=== PATIENT | male | born 1945 | race Caucasian/White ===

== ENCOUNTER → 2016-08-26 | Outpatient (CLI) | payer MEDICARE, OTHER | END | disposition home or self-care (01) | LOC: GMAH 10:17 | PROVIDERS: ATTEND Family Medicine | DX: R97.20 Elevated prostate specific antigen [PSA] (principal) ==

== ENCOUNTER → 2016-09-22 | Outpatient (CLI) | payer MEDICARE, OTHER ==
--- NOTE | 2016-09-23 12:09 | MRI ---
EXAM DESCRIPTION: Lumbar Spine w/o Contrast CLINICAL HISTORY: RADICULOPATHY COMPARISON: Thoracic and cervical spine MRIs 11/17/2014. TECHNIQUE: Multiplanar, multiple standard sequences, non contrast MRI, lumbar spine. FINDINGS: L5-S1: Minimal disc desiccation and moderate disc space loss. Posterior and left side Modic type II endplate reactive changes. Anterior disc bulging. Posterior midline and left paracentral 5 mm disc protrusion with small inferior annular fissure. This is abutting the descending left S1 nerve. Also the thecal sac. AP canal diameter 11 mm. Hypertrophic changes in the facets and ligaments more left than right. Mild left foraminal stenosis and severe right foraminal narrowing. L4-5: Minimal disc desiccation and minimal disc space loss. Minimal anterior bulging. Posterior broad-based 4 mm disc bulge abutting the thecal sac. Right paracentral 5 mm disc protrusion abutting the descending right L5 nerve above the lateral recess and also abutting the exiting right L4 nerve. Minimal facet and ligament hypertrophy bilaterally. AP canal diameter 7 mm. Moderate bilateral foraminal narrowing. L3-4: Disc desiccation and minimal disc space loss. Minimal anterior bulging. Posterior midline and left paracentral disc herniation 7.5 mm with inferior extrusion. Disc is compressing the thecal sac and impinging the left descending L4 nerve root; abutting the right L4 nerve root above the lateral recess. Minimal hypertrophy of the facets and ligaments bilaterally. AP canal diameter 7 mm midline and 4 mm left paracentral. Mild left foraminal narrowing and moderate right foraminal narrowing. L2-3: Disc desiccation. Tiny posterior bulge to the right of midline and and midline annular fissure. Mild hypertrophy of the posterior ligaments and facets. Mild right foraminal narrowing and left foramen is patent. Mild canal narrowing. L1-2: Disc desiccation and posterior disc space loss. Left paracentral 5 mm protrusion abutting the thecal sac and the descending left L2 nerve. Minimal hypertrophy of the posterior ligaments. Left paracentral AP canal diameter 9 mm. Conus terminates at this level. Mild left foraminal narrowing and moderate right foraminal narrowing. Well-circumscribed bright signal T1 and T2 lesion in the right L1 vertebral body abutting the base of the pedicle. T12-L1: Disc desiccation but no disc space loss. Disc space preserved. No disc bulging. Posterior elements are unremarkable. Canal and foramina are patent. No scoliosis. Paravertebral soft tissues are negative. Normal marrow signal in the remaining vertebral bodies and the posterior elements. Vertebral bodies are not compressed at any level. IMPRESSION: 1. Left posterior paramedian L5-S1 disc protrusion with small annular fissure, abutting the descending left S1 nerve. Correlate for radiculopathy. Moderate left foraminal stenosis, correlate for left L5 radiculopathy. 2. Right paracentral L4-5 disc protrusion abutting the descending right L5 nerve in the exiting right L4 nerve. Correlate for radiculopathy. Mild to moderate canal stenosis. 3. Posterior midline and left paramedian L3-4 disc protrusion and inferior extrusion impressing on the thecal sac and impinging the descending left L4 nerve. Left paracentral severe canal stenosis is multifactorial. Near- stenosis right foramen. 4. Left paracentral L1-2 disc protrusion posterior abutting the descending left L2 nerve. Correlate for radiculopathy. Left paracentral mild canal stenosis. 5. Hemangioma right L1 vertebral body. Electronically signed by: Mike Chang MD 09/23/2016 12:07 PM CDT Workstation: [id number]
== END ==
LOC: MRI 14:14
PROVIDERS: ATTEND Family Medicine
DX: M51.16 Intervertebral disc disorders with radiculopathy, lumbar region (principal)

== ENCOUNTER 2016-10-12 02:01 | Emergency (ER) | payer MEDICARE, OTHER ==
[2016-10-12 02:18] VITALS: O2SAT 98
--- NOTE | 2016-10-12 03:03 | ED.PDOC ---
History of Present Illness - General Chief Complaint: Blood Pressure Problem Stated Complaint: elevated blood pressure Time Seen by Provider: 10/12/16 02:01 Source: patient Exam Limitations: no limitations - History of Present Illness Initial Comments: Felipe Harvey 71 y/o male stated that he woke up from his sleep tonight after hearing his coughing tried to get back to sleep but had a strange feeling took his blood pressure 2x noted 175/110,190/115.Denies chest pains ,headache , blurry vision.Stated also taking care of with Alzheimers disease.Has history of HTN Timing/Duration: 1-3 hours Severity: moderate Improving Factors: nothing Worsening Factors: nothing Associated Symptoms: denies symptoms Allergies/Adverse Reactions: Allergies NO KNOWN ALLERGY Allergy (Unverified 10/12/16 02:11) Home Medications: Ambulatory Orders Losartan Potassium [Cozaar] 50 mg PO 09/17/13 Cipro 10/12/16 Meloxicam 10/12/16 Review of Systems - Review of Systems Constitutional: States: no symptoms reported EENTM: States: no symptoms reported Respiratory: States: no symptoms reported Cardiology: States: no symptoms reported Gastrointestinal/Abdominal: States: other - feels bloated,gassy for several weeks Genitourinary: States: other - elevated psa -followed up by urologist Musculoskeletal: States: no symptoms reported Skin: States: no symptoms reported Neurological: States: no symptoms reported Endocrine: States: no symptoms reported Past Medical History (General) - Patient Medical History Hx Seizures: No Hx Stroke: No Hx Dementia: No Hx Asthma: No Hx of COPD: No Hx Cardiac Disorders: No Hx Congestive Heart Failure: No Hx Pacemaker: No Hx Hypertension: Yes Hx Thyroid Disease: No Hx Diabetes: No Hx Gastroesophageal Reflux: No Hx Renal Disease: No Hx Cancer: No Hx of HIV: No Hx MRSA: No Surgical History: other - vasectomy - Vaccination History Hx Tetanus, Diphtheria Vaccination: Yes Hx Influenza Vaccination: Yes Hx Pneumococcal Vaccination: Yes Immunizations Up to Date: No - Social History Hx Tobacco Use: No Hx Chewing Tobacco Use: No Hx Alcohol Use: Yes - occasionally Hx Substance Use: No Hx Substance Use Treatment: No Hx Depression: No Feels Threatened In Home Enviroment: No Feels Threatened In a Relationship: No Hx Physical Abuse: No Hx Emotional Abuse: No Hx Suspected Abuse: No - Activities of Daily Living Hospice Agency (if applicable):: None Grooming Ability: Independent Eating (Feeding) Ability: Independent Toileting Ability: Independent Family Medical History - Family History Mother Name: mother Living Status: Unknown Hx Family Congestive Heart Failure: Yes Hx Family Hypertension: Yes - brother,mom Hx Family Cancer: Yes - prostate-dad Progress - Progress Progress: 10/12/16 03:11 Vital Signs - 8 hr 10/12/16 02:02 Temperature 97 F L Pulse Rate [ 66 tele] Respiratory 18 Rate Blood Pressure 182/107 [left upper arm ] O2 Sat by Pulse 98 Oximetry - Results/Orders Results/Orders: Laboratory Tests 10/12/16 10/12/16 10/12/16 03:00 03:00 03:00 WBC 3.9 L RBC 4.32 L Hgb 13.3 L Hct 38.7 L MCV 89.7 MCH 30.7 MCHC 34.3 RDW 13.0 Plt Count 179 MPV 8.0 Absolute Neuts (auto) 2.60 Absolute Lymphs (auto) 0.90 L Absolute Monos (auto) 0.30 Absolute Eos (auto) 0.20 Absolute Basos (auto) 0.00 Neutrophils % 66.5 Lymphocytes % 21.8 Monocytes % 7.0 Eosinophils % 3.9 Basophils % 0.8 Sodium 142 Potassium 3.8 Chloride 106 Carbon Dioxide 30 Anion Gap 9.8 L BUN 20 H Creatinine 1.21 BUN/Creatinine Ratio 16.5 Random Glucose 91 Serum Osmolality 285.3 Calcium 8.6 Total Bilirubin 1.3 H AST 18 ALT 17 Alkaline Phosphatase 44 Creatine Kinase 119 CK-MB (CK-2) 2.4 CK-MB (CK-2) % Not Reportable Troponin I < 0.02 Serum Total Protein 6.4 Albumin 3.9 Globulin 2.5 Albumin/Globulin Ratio 1.6 Lipase 49 Vital Signs - 8 hr 10/12/16 10/12/16 02:02 03:09 Temperature 97 F L 98.2 F Pulse Rate [ 66 70 tele] Respiratory 18 16 Rate Blood Pressure 182/107 154/97 [left upper arm ] O2 Sat by Pulse 98 98 Oximetry - EKG/XRAY/CT EKG: Esteban, Sinus, RBBB Comments: heart rate 58 CT Ordered: No Departure - Departure Clinical Impression: Hypertension Qualifiers: Hypertension type: unspecified Qualified Code(s): I10 - Essential (primary) hypertension Time of Disposition: 03:55 Disposition: Discharge to Home or Self Care Condition: Good Departure Forms: ED Discharge - Pt. Copy, Patient Portal Self Enrollment Instructions: DI for High Blood Pressure Diet: low fat, low cholesterol, low salt diet Referrals: Michael Evans MD [Primary Care Provider] - 1-2 Weeks Home Medications: Ambulatory Orders Losartan Potassium [Cozaar] 50 mg PO 09/17/13 Cipro 10/12/16 Meloxicam 10/12/16 Additional Instructions: Follow up with primary md 10/13/2016;Return to emergency room as needed
[2016-10-12 04:14] VITALS: BP 151/98; TEMP 97.2
== END 2016-10-12 04:09 | disposition home or self-care (01) ==
LOC: ER 02:01
DX: I10 Essential (primary) hypertension (principal); I45.10 Unspecified right bundle-branch block

== ENCOUNTER → 2017-02-09 | Outpatient (CLI) | payer MEDICARE, OTHER | END | disposition home or self-care (01) | LOC: GMAH 10:30 | PROVIDERS: ATTEND Family Medicine | DX: E78.2 Mixed hyperlipidemia (principal); I10 Essential (primary) hypertension; R97.20 Elevated prostate specific antigen [PSA] ==

== ENCOUNTER → 2017-05-12 | Outpatient (CLI) | payer MEDICARE, OTHER | LOC: GMAH 10:49 | PROVIDERS: ATTEND Family Medicine | DX: R97.20 Elevated prostate specific antigen [PSA] (principal); E29.1 Testicular hypofunction; I10 Essential (primary) hypertension ==

== ENCOUNTER → 2017-09-16 | Outpatient (CLI) | payer MEDICARE, OTHER ==
--- NOTE | 2017-09-16 14:41 | MRI ---
EXAM DESCRIPTION: Lumbar Spine w/o Contrast CLINICAL HISTORY: 72 years Male, RADICULOPATHY, LUMBAR REGION COMPARISON: 09/22/2016. TECHNIQUE: Multiplanar multiecho imaging of the lumbar spine was performed without intravenous contrast administration. FINDINGS: There is straightening of the normal lordotic curvature of the lumbar spine. The vertebral body heights are well-maintained with no acute compression deformity. Multilevel intervertebral disc space narrowing is noted. The conus medullaris terminates at L1-L2 intervertebral disc space. The visualized spinal cord demonstrates no signal abnormality. L1-L2: Diffuse disc bulge with a superimposed central disc extrusion resulting in moderate canal stenosis. There is mild right and moderate left neural foraminal narrowing secondary to facet arthropathy. L2-L3: Mild disc bulge with no canal stenosis. There is moderate right and mild left neural foraminal narrowing. L3-L4: Mild disc bulge and facet arthropathy with no canal stenosis. There is moderate bilateral neural foraminal narrowing. L4-L5: Diffuse disc bulge and facet arthropathy with no canal stenosis. There is moderate to severe right and moderate left neural foraminal narrowing. L5-S1: Posterior disc osteophyte complex with a superimposed left paracentral disc protrusion and bilateral facet arthropathy with no canal stenosis. There is moderate right and [id number] left neural foraminal narrowing. The visualized prevertebral and paravertebral soft tissues appear unremarkable. IMPRESSION: Multilevel degenerative disc disease and facet arthropathy throughout the lumbar spine with changes worst at L1-L2 level and better at L3-L4 level compared to prior examination. However there is stable to slightly progressed neural foraminal narrowing as detailed above. Electronically signed by: Andres Bradley MD 09/16/2017 2:40 PM CDT
--- NOTE | 2017-09-16 15:51 | CT ---
EXAM DESCRIPTION: Abdomen t/Pelvis w/o Contrast CLINICAL HISTORY: 72 years Male, GENERALIZED ABDOMINAL PAIN COMPARISON: None available. TECHNIQUE: Contiguous 3 mm axial images were obtained from the lung bases to the level of the proximal femora without the administration of intravenous or oral contrast. Sagittal and coronal reconstructions were reviewed. FINDINGS: Limited evaluation of the solid organs due to the lack of intravenous contrast. THORAX: The imaged lower thorax demonstrates no gross abnormality. No pleural or pericardial effusion. The distal esophagus appears grossly unremarkable. Limited evaluation of the solid abdominal organs due to lack of intravenous contrast. LIVER: The liver appears grossly unremarkable with no intrahepatic biliary ductal dilatation. GALLBLADDER: Grossly unremarkable. No evidence of cholelithiasis or acute cholecystitis. PANCREAS: Appears normal with no cystic or solid lesions. SPLEEN: Normal ADRENAL GLANDS: Normal with no nodules or masses. KIDNEYS: Both kidneys are symmetric in size and contour with no hydronephrosis or nephrolithiasis or perinephric fluid collections. The visualized ureters appear grossly unremarkable. STOMACH: The stomach is moderately with no gross abnormality. SMALL BOWEL: The small bowel loops demonstrate variable degrees of distention with no abnormal dilatation or other signs to suggest bowel obstruction. LARGE BOWEL: The colon is adequately distended with no gross abnormality. The appendix is well-visualized and appears normal. Scattered diverticula are noted throughout the colon with no evidence of diverticulitis. No evidence of free intraperitoneal air or fluid. RETROPERITONEUM: The abdominal aorta is nonaneurysmal with mild atherosclerotic calcifications.. The inferior vena cava is normal in size and caliber. No abnormally enlarged retroperitoneal lymph nodes are identified. URINARY BLADDER:The urinary tract is moderately distended and demonstrates mild circumferential wall thickening prostrate and seminal vesicles appear unremarkable. ADDITIONAL FINDINGS: None. BONES: Multilevel degenerative disease of the thoracolumbar spine noted more predominant at L5-S1 level with intervertebral disc space narrowing and severe bilateral facet arthropathy changes. IMPRESSION: 1. No acute intra-abdominal process. 2. Mild compression urinary bladder wall thickening could be related to nondistention, however acute cystitis cannot be completely excluded. Clinical correlation with urinalysis is recommended. This exam was performed according to our departmental dose-optimization program, which includes automated exposure control, adjustment of the mA and/or kV according to patient size and/or use of iterative reconstruction technique. Electronically signed by: Andres Bradley MD 09/16/2017 3:50 PM CDT
== END ==
LOC: CT 13:30
PROVIDERS: ATTEND Family Medicine
DX: R10.84 Generalized abdominal pain (principal); M51.16 Intervertebral disc disorders with radiculopathy, lumbar region

== ENCOUNTER → 2018-02-23 | Outpatient (CLI) | payer MEDICARE, OTHER | LOC: GMAH 12:57 | PROVIDERS: ATTEND Family Medicine | DX: E78.2 Mixed hyperlipidemia (principal); I10 Essential (primary) hypertension; Z12.5 Encounter for screening for malignant neoplasm of prostate | CPT/HCPCS: 84443; 84550; G0103 ==

== ENCOUNTER → 2018-09-14 | Outpatient (CLI) | payer MEDICARE, OTHER | LOC: GMAH 10:28 | PROVIDERS: ATTEND Family Medicine | DX: R97.20 Elevated prostate specific antigen [PSA] (principal) ==

== ENCOUNTER → 2018-09-20 | Outpatient (CLI) | payer MEDICARE, OTHER ==
--- NOTE | 2018-09-21 11:07 | CT ---
EXAM DESCRIPTION: Abdomen/Pelvis w/o Contrast: Computed Tomography. CLINICAL HISTORY: 73 years Male Generalized abdominal pain COMPARISON: CT scan of abdomen and pelvis without contrast 09/16/2017. TECHNIQUE: Spiral-axial scans 2.5 x 2.5 mm intervals through the abdomen and pelvis without oral or IV contrast. Coronal and sagittal 2.0 mm reconstructions. Total Exam DLP: 755.85 mGy-cm. This exam was performed according to our departmental CT dose-optimization program which includes automated exposure control, adjustment of the mA and/or kV according to patient size and/or use of iterative reconstruction technique; to reduce radiation dose to as low as reasonably achievable (ALARA). FINDINGS: Lung bases and pleura: Negative. Cardiac stents and/or calcifications. Liver, stomach, spleen, and adrenal glands: Long axis right lobe 17.6 cm. Small hiatal hernia stable since the prior study. Pancreas, Gallbladder, and Ducts: Gallbladder visualized. Common bile duct dilated. Minimal thickening of the body and tail of the pancreas with calcifications. Stable since the prior study. Possible dilated ducts at the head of the pancreas. Pancreatic duct not dilated in the body and tail. Smooth pancreatic border with no surrounding fatty stranding. Kidneys and Ureters: Unremarkable. Mesentery: No fatty stranding, fascial thickening, free air or free fluid. Aorta: Minimal atherosclerotic calcifications and ectasia. Small Bowel: Scattered gas with no distended segments. Terminal Ileum/Cecum: TI negative. Cecum distended by fecal matter. Minimal appendiceal enlargement but no inflammatory changes. Stable since the prior study. Colon: Moderate distention of the proximal mid and distal colon. Redundancy of the sigmoid colon; focal dilation by air in the superior mid abdomen abutting the pancreas with distal decompression. No complications. Pelvic Organs: Minimal wall thickening in the urinary bladder which may be due to lack of distention. Also seen on the prior study. Prostate gland abutting the bladder and seminal vesicles. No free fluid. Spine and Bony Pelvis: Spondylosis posterior L5-S1 and also mild in the thoracic spine. No change since the prior study. Abdominal Wall/Back Soft Tissues: Minimal diastases at the umbilicus but no bowel involvement. No change since the prior study. IMPRESSION: 1. Enlargement of the pancreas, head more than body or tail, but no dilation of the pancreatic duct. No fatty inflammatory changes. Stable since the prior study. Dilation of the common bile duct, more distally. Gallbladder nondistended. Consider gallbladder ultrasound and radionuclide evaluation of the hepatobiliary system. 2. Moderate constipation in the colon. 3. Mild aortic dilatation, not meeting criteria for aneurysm. No follow-up imaging is recommended. Reference: J Am Tash Radiol 2013;10:789-794. Electronically signed by: Mike Chang MD 09/21/2018 11:05 AM CDT
== END ==
LOC: CT 09:36
PROVIDERS: ATTEND Family Medicine
DX: K86.9 Disease of pancreas, unspecified (principal); K83.8 Other specified diseases of biliary tract; K59.00 Constipation, unspecified; I77.819 Aortic ectasia, unspecified site

== ENCOUNTER → 2018-09-24 | Outpatient (CLI) | payer MEDICARE, OTHER ==
--- NOTE | 2018-09-24 09:08 | US ---
EXAM DESCRIPTION: Gall Bladder CLINICAL HISTORY: RUQ PAIN COMPARISON: Previous CT abdomen September 20, 2018 TECHNIQUE: Right upper quadrant ultrasound FINDINGS: Pancreas: Visualized portions of the pancreas are unremarkable. Previous CT September 20, 2018 showed thickened body of the pancreas and prominent head. These areas are not well seen due to overlying air in the stomach or other bowel gas. One might consider CT abdomen with contrast, MRI of the abdomen for endoscopic sonography to better evaluate the pancreas. Aorta/inferior vena cava: No aortic aneurysm. Normal inferior vena cava. Liver: The liver is homogeneous in texture with normal echogenicity of the hepatic parenchyma. No focal liver lesion or intrahepatic bile duct dilatation. No liver surface irregularity. Normal appearance of the portal vein and hepatic veins. Gallbladder: Gallbladder appears normal with no intraluminal stones or wall thickening. Common bile duct: Normal caliber measuring 8.8 mm. Right kidney: Renal length is 10.7 cm. Normal cortical echogenicity. Cortical thickness is normal. No hydronephrosis is seen. No renal mass or shadowing calculus. IMPRESSION: Limited visualization of the pancreas. Unremarkable upper abdominal sonogram. Electronically signed by: Wayne Sorensen MD 09/24/2018 9:06 AM CDT
== END ==
LOC: US 08:00
PROVIDERS: ATTEND Family Medicine
DX: R10.11 Right upper quadrant pain (principal); R93.2 Abnormal findings on diagnostic imaging of liver and biliary tract

== ENCOUNTER → 2018-09-29 | Outpatient (CLI) | payer MEDICARE, OTHER ==
--- NOTE | 2018-09-29 15:26 | NM ---
EXAM DESCRIPTION: Hepatobiliary w/CCK: Nuclear Medicine. CLINICAL HISTORY: Abnormal findings on diagnostic imaging of liver and biliary trac COMPARISON: Ultrasound gallbladder 09/24/2018. TECHNIQUE: Patient was given 8.6 mCi of technetium 99 M mebrofenin (Choletec) radiopharmaceutical IV. Anterior gamma camera images were obtained of the right upper quadrant at 5 minute intervals for one hour . The patient was then given 1.8 mcg CCK. Gallbladder ejection fraction was evaluated by measuring diminishing radioactivity in the gallbladder, over 30 min interval. FINDINGS: After administration of radiopharmaceutical, immediate visualization of the entire liver and intrahepatic ducts. No focal regions of increased or decreased activity. Gallbladder (2 apparent at 10 minutes after injection. Activity in the intestines 10 minutes after injection. After CCK was administered, symptoms of nausea and abdominal cramping are replicated. Gallbladder activity decreased 80% 10 minutes after administration. Activity increased in the gallbladder from 10 minutes to 30 minutes after administration with overall 30 minutes activity decreased 2%. Reflux of activity into the stomach after administration of CCK. IMPRESSION: 1. No intrahepatic or extrahepatic biliary obstruction. 2. Gallbladder ejection fraction in the first 10 minutes was 80%. Reflux of activity into the stomach with administration of CCK as well as reproduction of symptoms. Electronically signed by: Mike Chang MD 09/29/2018 3:23 PM CDT
== END ==
LOC: NM 08:07
PROVIDERS: ATTEND Family Medicine
DX: R93.2 Abnormal findings on diagnostic imaging of liver and biliary tract (principal); R10.11 Right upper quadrant pain
CPT/HCPCS: 78227; A9537

== ENCOUNTER → 2018-10-29 | Outpatient (CLI) | payer MEDICARE, OTHER ==
--- NOTE | 2018-11-01 08:53 | MRI ---
PROVIDED CLINICAL HISTORY/REASON FOR EXAM: LUMBAR RADICULOPATHY TECHNIQUE: Multiplanar, multisequence MRI examination performed of the lumbar spine without intravenous contrast material. COMPARISON: September 16, 2017 FINDINGS: Five lumbar type vertebra are present. Designated L5/S1 disc space axial T2 image three. Stable L1 vertebral body hemangioma. Alignment: Minimal degenerative stairstep retrolisthesis standing L1-L5. Fracture: None present. Paraspinal Soft Tissues: Unremarkable. Retroperitoneum: Visible structures are unremarkable. Conus Medullaris: Termination at L1 level. Morphology is normal. T12/L1: No significant abnormality. L1/2: Disc desiccation with loss of disc space height. Large posterior disc herniation. The extruded disc contents extend into the canal by 1.05 cm. The cranial migration of extruded disc contents extend 7 mm above the disc space. The caudal extruded disc contents extend 1.2 cm below the disc space. There is severe central canal stenosis. Mild bilateral neural foraminal narrowing. No cord signal abnormality. Redundant nerve roots above the level of the disc herniation. Bilateral facet arthrosis. L2/3: Disc desiccation with mild loss of disc space height posteriorly. Symmetric diffuse disc bulge with a posterior annular fissure. Extruded disc contents extend into the canal by 4 mm. Mild central canal stenosis. Mild bilateral neural foraminal narrowing. Mild right lateral recess narrowing. Bilateral facet arthrosis. L3/4: Disc desiccation with loss of disc space height. Diffuse symmetric disc bulge osteophyte complex. Extruded disc, extending into the canal by 4 mm. Mild central canal stenosis. Bilateral facet hypertrophy and thickening of the ligamentum flavum. Moderate bilateral neural foraminal narrowing. L4/5: Diffuse symmetric disc bulge. Moderate bilateral lateral recess narrowing. Moderate bilateral neural foraminal narrowing. Mild central canal stenosis. Bilateral facet arthrosis and thickening of the ligamentum flavum. L5/S1: Disc desiccation with loss of disc space height and endplate degenerative change. Symmetric diffuse disc bulge osteophyte complex with a superimposed left paracentral disc protrusion. The protrusion extends into the canal by approximately 5 mm. There is an associated annular fissure. No significant central canal stenosis. Moderate to severe bilateral neural foraminal narrowing. Bilateral facet hypertrophy. IMPRESSION: Progressed multilevel lumbar spondylosis, most notably at L1/L2 with a large disc herniation resulting in severe central canal stenosis and mild bilateral neural foraminal narrowing. Electronically signed by: Yony Liao MD 11/01/2018 8:51 AM CDT
== END ==
LOC: MRI 14:00
PROVIDERS: ATTEND Family Medicine
DX: M51.16 Intervertebral disc disorders with radiculopathy, lumbar region (principal); M47.26 Other spondylosis with radiculopathy, lumbar region; M48.062 Spinal stenosis, lumbar region with neurogenic claudication

== ENCOUNTER → 2018-12-15 | Outpatient (CLI) | payer MEDICARE, OTHER | LOC: NC 11:26 | PROVIDERS: ATTEND Family Medicine | DX: R30.0 Dysuria (principal) ==

== ENCOUNTER → 2018-12-22 | Outpatient (CLI) | payer MEDICARE, OTHER ==
--- NOTE | 2018-12-23 15:42 | CT ---
EXAM DESCRIPTION: Lumbar Spine w/Contrast: Computed Tomography. CLINICAL HISTORY: 73 years Male RADICULOPATHY COMPARISON: MRI scan lumbar spine 29 October 2018. TECHNIQUE: Spiral, axial 2.5 x 2.5 mm scans through the lumbarspine without and with IV contrast. Coronal and sagittal 2.0 mm Reconstructions, post-IV contrast. No adverse reactions. Total Exam DLP: 805.65 mGy-cm. This exam was performed according to our departmental dose-optimization program which includes automated exposure control, adjustment of the mA and/or kV according to patient size and/or use of iterative reconstruction technique; to reduce radiation dose to as low as reasonably achievable (ALARA). FINDINGS: L5-S1 disc space is significantly decreased with air density in the disc space. No significant enhancement. Bilateral partial laminectomy L2 and inferior L1. Enhancement is noted in the thecal sac. In the laminectomy site, is a round soft tissue mass measuring 2.5 x 2.4 cm in the transverse plane and 2.6 cm craniocaudal. Hounsfield density +35 to post 40. No significant enhancement internally or in the rim of this collection. No calcifications or loose bodies. Posterior to this tissue is heterogeneously dense tissue representing residual muscle and postsurgical changes. At the junction of the posterior muscle layer and the subcutaneous fascia is a low-density fusiform shaped collection measuring 5.3 x 2.1 x 1.3 cm. Minimal enhancement around this tissue. L5-S1 moderate disc space loss with calcification posterior disc space and borderline canal stenosis with bilateral foraminal stenosis. Minimal bulging posteriorly L4-5 disc with bilateral foraminal and canal narrowing but no definite stenosis. Similar findings at L3-4 and L2-3. No significant change from the prior MRI scan IMPRESSION: 1. Soft tissue mass with Hounsfield density +35 to +40, and the posterior epidural space and prior laminectomy site. No significant renal or internal enhancement in the partial laminectomy site posterior to L2 and the inferior lamina of L1. No calcifications or radiodense loose bodies. 2. Elliptical shaped partial fluid collection at the junction of the posterior muscle layer, the overlying fascia, and the subcutaneous adipose tissues parallel to the long axis of the spine. Minimal surrounding enhancement but no well-defined rim. This could represent early abscess formation.. Electronically signed by: Mike Chang MD 12/23/2018 3:41 PM CDT
== END ==
LOC: CT 13:30
PROVIDERS: ATTEND Neurological Surgery
DX: M54.16 Radiculopathy, lumbar region (principal); R22.2 Localized swelling, mass and lump, trunk; M79.9 Soft tissue disorder, unspecified; I10 Essential (primary) hypertension

== ENCOUNTER 2019-02-20 19:23 | Emergency (ER) | payer MEDICARE, OTHER ==
[2019-02-20] MEDS ORDERED: SODIUM CHLORIDE 0.9% (FLUSH) 10 ML SYG IV PRN (19:42)
[2019-02-20] MEDS ORDERED: SODIUM CHLORIDE 0.9% 1000ML 1,000 ML IVS ONE (19:42)
[2019-02-20] MEDS ORDERED: ACETAMINOPHEN IV 1000MG 1,000 MG in PREMIX BOTTLE 1 BOTTLE IVPB ONE (19:43)
[2019-02-20] MEDS ORDERED: ONDANSETRON INJ 4 MG/2 ML VIAL IV ONE (19:43)
[2019-02-20] MEDS ORDERED: fentaNYL CITRATE INJ 50 MCG/ML AMP IV ONE (19:43)
[2019-02-20 19:45] VITALS: O2SAT 100
--- NOTE | 2019-02-20 19:47 | ED.PDOC ---
History of Present Illness - General Chief Complaint: Back Pain or Injury Stated Complaint: right low back pain Time Seen by Provider: 02/20/19 19:35 Source: patient Exam Limitations: no limitations - History of Present Illness Initial Comments: Patient presents to the emergency department complaining of right-sided back and flank pain that has been progressively worsening over the last month. He has a history of multiple surgeries on his back the last was in December 2018 for a postsurgical paraspinal abscess. His neurosurgeon is Dr. Madera, the patient called his neurosurgeon's office on 02/18/19 for this pain and they called in a prescription for Tylenol with codeine and Valium which she has been taking and initially it seemed to be helping with the pain however today it is no longer making a difference. Did on the right lumbar area as well as the lumbar spine and wraps around to the front of the right abdomen. He denies any associated nausea, vomiting or diarrhea. He denies any bowel or bladder incontinence, groin numbness or lower extremity weakness or numbness, he does have tingling in his R toes which has been present since his first surgery and is unchanged. He denies any fever or chills. He has not had any hematuria or dysuria and denies any history of kidney stones. He does report constipation as his last bowel movement was approximately 4 days ago and he has been taking some MiraLAX without significant results. Pain is currently rated 10/10 in severity and is worsened with movement and palpation. He denies any new trauma or injury. Allergies/Adverse Reactions: Allergies NO KNOWN ALLERGY Allergy (Verified 02/20/19 19:46) Home Medications: Ambulatory Orders Losartan Potassium [Cozaar] 100 mg PO DAILY 09/17/13 Acetaminophen W/ Codeine [Tylenol W/ CODEINE #3] 1 ea PO QID PRN 02/20/19 Atorvastatin Calcium 40 mg PO DAILY 02/20/19 Diazepam 2 mg PO Q8HRS PRN 02/20/19 Gabapentin 300 mg PO BID 02/20/19 Ibuprofen [Motrin] 200 mg PO PRN PRN 02/20/19 Methocarbamol 1,000 mg PO QID 02/20/19 Tadalafil 5 mg PO DAILY 02/20/19 Review of Systems - Review of Systems Constitutional: States: malaise. Denies: fever, weakness EENTM: Denies: nose congestion, throat pain Respiratory: Denies: cough, short of breath Cardiology: Denies: chest pain, palpitations Gastrointestinal/Abdominal: States: abdominal pain - R sided, constipation. Denies: diarrhea, nausea, vomiting Genitourinary: Denies: dysuria, hematuria Musculoskeletal: States: back pain - lumbar and R flank, muscle pain - R flank Skin: Denies: lesions, rash Neurological: Denies: headache, numbness, weakness Past Medical History (General) - Patient Medical History Hx Seizures: No Hx Stroke: No Hx Dementia: No Hx Asthma: No Hx of COPD: No Hx Cardiac Disorders: No Hx Congestive Heart Failure: No Hx Pacemaker: No Hx Hypertension: Yes Hx Thyroid Disease: No Hx Diabetes: No Hx Gastroesophageal Reflux: No Hx Renal Disease: No Hx Cancer: No Hx of HIV: No Hx MRSA: No - Vaccination History Hx Tetanus, Diphtheria Vaccination: Yes Hx Influenza Vaccination: Yes Hx Pneumococcal Vaccination: Yes - Social History Hx Tobacco Use: No Hx Chewing Tobacco Use: No Hx Alcohol Use: Yes - occasionally Hx Substance Use: No Hx Substance Use Treatment: No Hx Depression: No Hx Physical Abuse: No Hx Emotional Abuse: No Hx Suspected Abuse: No Family Medical History - Family History Mother Name: mother Living Status: Unknown Hx Family Congestive Heart Failure: Yes Hx Family Hypertension: Yes - brother,mom Hx Family Cancer: Yes - prostate-dad Physical Exam - Physical Exam General Appearance: Alert, Obvious distress - due to pain, Well Developed, Well Nourished Eyes, Ears, Nose, Throat Exam: PERRL/EOMI, pharynx normal Neck Exam: full range of motion, normal inspection Cardiovascular/Respiratory: regular rate, rhythm, no M/R/G, normal peripheral pulses Peripheral Pulses: radial,right: 2+, radial,left: 2+, dorsalis pedis,right: 2+, dorsalis pedis,left: 2+ Gastrointestinal/Abdominal: soft, abnormal bowel sounds, distended, other - Slightly distended but soft with no focal tenderness. Hypoactive bowel sounds. Back Exam: no CVA tenderness, decreased range of motion, vertebral tenderness, other - Fullness to the lumbar spinal soft tissues with tenderness over the lumbar spine as well as the right lumbar paraspinal muscles. Spasm in the right lumbar paraspinal muscles. Extremity Exam: normal range of motion, no pedal edema Neurologic: social worker assistant II-XII nml as tested, no motor/sensory deficits, alert, normal mood/affect, oriented x 3 Skin Exam: normal color, warm/dry Comments: Vital Signs - 24 hr 02/20/19 19:29 Temperature 98.5 F Pulse Rate [ 86 monitor] Respiratory 20 Rate Blood Pressure 165/90 [Left Arm] O2 Sat by Pulse 100 Oximetry Progress - Progress Progress: 02/20/19 21:[address] findings with the radiologist concerning for anterior epidural fluid collection and discitis with osteomyelitis. 21:30 Spoke with her Josh ,the on-call neurosurgeon for Dr. Madera patient's neurosurgeon, and he recommends transfer the patient to [facility] ER for admission and MRI and he will see the patient in consult. He states that it is his recollection of the patient's previous cultures grew pseudomonas. 31:33 Patient recheck: His pain is significantly improved. All lab and imaging results were discussed with the patient along with the plan for transfer for further evaluation and neurosurgical consultation. IV vancomycin, cefepime and Flagyl have been ordered. He agrees with the treatment plan. 02/20/19 22:[address] Laytno, the emergency physician at [facility], he will accept the patient transfer. - Results/Orders Results/Orders: 02/20/19 19:42 IV Care:Saline Lock per Protoc QSHIFT Telemetry .ONCE Sodium Chloride 0.9% (Flush) [Saline Flush Syringe] 10 ml IV PRN PRN EKG Assessment ONCE EKG Stat Pulse Ox Stat Pulse Oximetry Assessment DAILY URINALYSIS Stat 02/20/19 19:44 Hold Metformin x 48Hrs [id number] 02/20/19 20:12 BLOOD CULTURE Stat Laboratory Results - last 24 hr 02/20/19 02/20/19 02/20/19 19:42 19:42 19:42 WBC 6.7 RBC 4.46 L Hgb 13.2 L Hct 39.0 L MCV 87.4 MCH 29.6 MCHC 33.8 RDW 12.7 Plt Count 241 MPV 7.8 Absolute Neuts (auto) 5.30 Absolute Lymphs (auto) 0.70 L Absolute Monos (auto) 0.50 Absolute Eos (auto) 0.10 Absolute Basos (auto) 0.00 Neutrophils % 78.7 H Lymphocytes % 11.2 L Monocytes % 7.6 Eosinophils % 1.9 Basophils % 0.6 ESR PT 9.4 INR 0.94 Sodium 139 Potassium 3.7 Chloride 101 Carbon Dioxide 29 Anion Gap 12.7 BUN 16 Creatinine 1.03 BUN/Creatinine Ratio 15.5 Random Glucose 98 Serum Osmolality 278.7 Lactic Acid Calcium 9.3 Total Bilirubin 0.9 AST 23 ALT 30 Alkaline Phosphatase 78 Creatine Kinase 128 CK-MB (CK-2) 5.4 H* CK-MB (CK-2) % 4.22 H Troponin I < 0.02 C-Reactive Protein Serum Total Protein 7.6 Albumin 4.2 Globulin 3.4 Albumin/Globulin Ratio 1.2 02/20/19 02/20/19 02/20/19 19:43 19:43 19:45 WBC RBC Hgb Hct MCV MCH MCHC RDW Plt Count MPV Absolute Neuts (auto) Absolute Lymphs (auto) Absolute Monos (auto) Absolute Eos (auto) Absolute Basos (auto) Neutrophils % Lymphocytes % Monocytes % Eosinophils % Basophils % ESR 35 H PT INR Sodium Potassium Chloride Carbon Dioxide Anion Gap BUN Creatinine BUN/Creatinine Ratio Random Glucose Serum Osmolality Lactic Acid 0.8 Calcium Total Bilirubin AST ALT Alkaline Phosphatase Creatine Kinase CK-MB (CK-2) CK-MB (CK-2) % Troponin I C-Reactive Protein 0.8 Serum Total Protein Albumin Globulin Albumin/Globulin Ratio 02/20/191999 EKG: Interpreted by myself as sinus rhythm rate 74 with a right bundle branch block. Normal axis. QRS of 152 ms. Normal OR and QTc intervals. No ST elevation and nonspecific ST-T changes. CXR: IMPRESSION: Left lung base consolidation. Electronically signed by: Mike Wall 02/20/2019 8:22 PM [address] [employer] CT A/P with lumbar reconstruction: IMPRESSION: Moderate diffuse colonic constipation without bowel inflammation or obstruction. Findings concerning for discitis and osteomyelitis at L2-L3 including an anterior epidural mass. Neurosurgical evaluation and contrast enhanced MRI recommended. Electronically signed by: Corinne Keane MD 02/20/2019 9:22 PM CONTACT [employer] OPERATOR Departure - Departure Clinical Impression: Discitis of lumbar region, Osteomyelitis of lumbar vertebra, Epidural abscess LLL pneumonia Qualifiers: Pneumonia type: due to unspecified organism Qualified Code(s): J18.9 - Pneumonia, unspecified organism Time of Disposition: 22:34 Home Medications: Ambulatory Orders Losartan Potassium [Cozaar] 100 mg PO DAILY 09/17/13 Acetaminophen W/ Codeine [Tylenol W/ CODEINE #3] 1 ea PO QID PRN 02/20/19 Atorvastatin Calcium 40 mg PO DAILY 02/20/19 Diazepam 2 mg PO Q8HRS PRN 02/20/19 Gabapentin 300 mg PO BID 02/20/19 Ibuprofen [Motrin] 200 mg PO PRN PRN 02/20/19 Methocarbamol 1,000 mg PO QID 02/20/19 Tadalafil 5 mg PO DAILY 02/20/19 Transfer to Outside Facility - Transfer Information Decision to Transfer Date: 02/20/19 Decision to Transfer Time: 21:30 Reason for Transfer: specialized care not available Accepting Provider:: Dr. Layton Accepting Facility: [facility]
--- NOTE | 2019-02-20 20:23 | RAD ---
EXAM DESCRIPTION: Chest,1 View CLINICAL HISTORY: back pain COMPARISON: None. FINDINGS: Cardiac silhouette is within normal limits. There is consolidation at the medial left lung base. No significant pleural effusion. IMPRESSION: Left lung base consolidation. Electronically signed by: Mike Wall 02/20/2019 8:22 PM [facility]
--- NOTE | 2019-02-20 21:23 | CT ---
PROCEDURE: CT Abdomen/Pelvis w/Contrast CLINICAL HISTORY: 73 years Male Right abd pain TECHNIQUE: Contiguous axial images obtained through the abdomen and pelvis following intravenous contrast administration. Coronal and sagittal reformatted images provided. This CT exam was performed according to our departmental dose-optimization program, which includes one or more of the following dose reduction techniques: automated exposure control, adjustment of the mA and/or kV according to patient size, and/or use of iterative reconstruction technique. COMPARISON: Comparison is made with the prior exam dated 09/20/2018 FINDINGS: Minimal bibasilar atelectasis. The liver, biliary tree, gallbladder, pancreas, spleen, adrenal glands, kidneys, and urinary bladder are normal. There is moderate diffuse colonic constipation without bowel inflammation, obstruction, pneumatosis, free intraperitoneal air, abscess, or ascites. Normal appendix. There has been prior posterior decompression at L2-L3. There is chronic-appearing destruction of the L2-L3 disc with an anterior epidural mass. These findings are new since the prior exam. The remainder of the lumbar spine demonstrates moderate chronic multilevel degenerative change. IMPRESSION: Moderate diffuse colonic constipation without bowel inflammation or obstruction. Findings concerning for discitis and osteomyelitis at L2-L3 including an anterior epidural mass. Neurosurgical evaluation and contrast enhanced MRI recommended. Electronically signed by: Corinne Keane MD 02/20/2019 9:22 PM DIESEL LUBE TECH
--- NOTE | 2019-02-20 21:31 | CT ---
PROCEDURE: CT Lumbar Spine w/Contrast CLINICAL HISTORY: 73 years Male R back pain TECHNIQUE: Contiguous axial CT images obtained through the lumbar spine without IV contrast. Coronal and sagittal reformatted images also provided. This CT exam was performed according to our departmental dose-optimization program, which includes one or more of the following dose reduction techniques: automated exposure control, adjustment of the mA and/or kV according to patient size, and/or use of iterative reconstruction technique. COMPARISON: No prior exams provided for comparison. FINDINGS: Patient again seen to be status post posterior decompression at L1-L2. New since the prior exam is destruction of the L1-L2 disc with associated endplate erosion and sclerosis, consistent with discitis. Also new since the prior exam is Mild soft tissue fullness at this level, including an anterior epidural mass measuring up to 9 mm in thickness. Posterior to the thecal sac, there is soft tissue attenuation without definite fluid. The remainder of the lumbar spine is stable with mild chronic multilevel degenerative change. At L4-L5, degenerative changes result in severe central canal stenosis with moderate bilateral neural foraminal stenosis. At L5-S1, stable left paracentral disc extrusion with moderate central canal stenosis and severe bilateral neural foraminal stenosis. IMPRESSION: Postsurgical changes again noted at L1-L2. Since the prior exam, there has been development of discitis and osteomyelitis at this level. There has also been development of paraspinal soft tissue fullness including an anterior epidural mass measuring up to 9 mm in thickness. Neurosurgical evaluation recommended. Consider further evaluation with contrast-enhanced MRI. THIS REPORT CONTAINS FINDINGS THAT MAY BE CRITICAL TO PATIENT CARE: The findings were verbally discussed via telephone conference with Dr. Christie Sosa by Dr. Corinne Keane on 02/20/2019 9:24 PM CARTOON DESIGNER .The results were acknowledged and understood. Electronically signed by: Corinne Keane MD 02/20/2019 9:29 PM C[employer] DESIGNER
[2019-02-20] MEDS ORDERED: metroNIDAZOLE IV PREMIX 500MG 500 MG in PREMIX BAG 1 BAG IVPB ONE (21:44)
[2019-02-20] MEDS ORDERED: CEFEPIME 2 GM in SODIUM CHL 0.9% 50ML MIN-BAG+ 50 ML IVPB ONE (21:44)
[2019-02-20] MEDS ORDERED: ACETAMINOPHEN IV 1000MG 100 ML ONE (21:55)
[2019-02-20] MEDS ORDERED: VANCOMYCIN HCL INJ 2,000 MG in SODIUM CHLORIDE 0.9% 500ML 500 ML IVPB SCH (22:00)
[2019-02-20] MEDS ORDERED: SODIUM CHL 0.9% 50ML MIN-BAG+ 50 ML IVPB ONE (22:37)
[2019-02-20] MEDS ORDERED: CEFEPIME 2 GM VIAL ONE (22:37)
[2019-02-20] MEDS ORDERED: metroNIDAZOLE IV PREMIX 500MG 100 ML IVPB ONE (22:37)
--- NOTE | 2019-02-20 22:50 | CT ---
PROCEDURE: CT Lumbar Spine w/Contrast CLINICAL HISTORY: 73 years Male R back pain TECHNIQUE: Contiguous axial CT images obtained through the lumbar spine without IV contrast. Coronal and sagittal reformatted images also provided. This CT exam was performed according to our departmental dose-optimization program, which includes one or more of the following dose reduction techniques: automated exposure control, adjustment of the mA and/or kV according to patient size, and/or use of iterative reconstruction technique. COMPARISON: No prior exams provided for comparison. FINDINGS: Patient again seen to be status post posterior decompression at L1-L2. New since the prior exam is destruction of the L1-L2 disc with associated endplate erosion and sclerosis, consistent with discitis. Also new since the prior exam is Mild soft tissue fullness at this level, including an anterior epidural mass measuring up to 9 mm in thickness. Posterior to the thecal sac, there is soft tissue attenuation without definite fluid. The remainder of the lumbar spine is stable with mild chronic multilevel degenerative change. At L4-L5, degenerative changes result in severe central canal stenosis with moderate bilateral neural foraminal stenosis. At L5-S1, stable left paracentral disc extrusion with moderate central canal stenosis and severe bilateral neural foraminal stenosis. IMPRESSION: Postsurgical changes again noted at L1-L2. Since the prior exam, there has been development of discitis and osteomyelitis at this level. There has also been development of paraspinal soft tissue fullness including an anterior epidural mass measuring up to 9 mm in thickness. Neurosurgical evaluation recommended. Consider further evaluation with contrast-enhanced MRI. THIS REPORT CONTAINS FINDINGS THAT MAY BE CRITICAL TO PATIENT CARE: The findings were verbally discussed via telephone conference with Dr. Christie Sosa by Dr. Corinne Keane on 02/20/2019 9:24 PM MANAGER DOCUMENTATION .The results were acknowledged and understood. Electronically signed by: Corinne Keane MD 02/20/2019 9:29 PM MANAGER DOCUMENTATION
[2019-02-20 22:56] VITALS: BP 174/99; TEMP 98.7
[2019-02-20] MEDS ORDERED: SODIUM CHLORIDE 0.9% 500ML 500 ML ONE (22:57)
[2019-02-20] MEDS ORDERED: VANCOMYCIN HCL INJ 1,000 MG VIAL IVPB ONE (22:57)
== END 2019-02-20 23:17 | disposition home or self-care (01) ==
LOC: ER 19:23
DX: G06.1 Intraspinal abscess and granuloma (principal); M46.26 Osteomyelitis of vertebra, lumbar region; J18.9 Pneumonia, unspecified organism; I45.10 Unspecified right bundle-branch block; K59.00 Constipation, unspecified; Z98.890 Other specified postprocedural states; I10 Essential (primary) hypertension
CPT/HCPCS: 36415; 71045; 72132; 74177; 80053; 81001; 82550; 82553; 83605; 84484; 85025; 85610; 85651; 86140; 87040; 93005; J0692; J2405; J3010; J3370; J3490; J7030; J7040; J7050

== ENCOUNTER → 2019-03-16 | Outpatient (CLI) | payer MEDICARE, OTHER ==
--- NOTE | 2019-03-16 17:34 | MRI ---
EXAM DESCRIPTION: Lumbar Spine w/wo Contrast: Magnetic Resonance Imaging. CLINICAL HISTORY: LUMBAR RADICULOPATHY. Lumbar surgery for herniated disc at L1-L2 December 2018. Osteomyelitis has developed. Currently taking IV infusion antibiotics. COMPARISON: Presurgical lumbar MRI without contrast October 2018. CT scan of the lumbar spine 20 February 2019. TECHNIQUE: Multiplanar, MRI, multiple standard sequences, without and with 1 mL per 5 kg body weight, Gadolinium IV contrast, lumbar spine. No adverse reactions. FINDINGS: Significant disc space loss at L1-L2 with endplate erosions and enhancement. Enhancement also in the disc space mostly to the right of midline and in the posterior disc space. This enhancing substance in the posterior disc space, more left than right, is also tracking posterior to the L2 endplate, in the epidural space, midline and the left of midline. It is Impressing on the ventral midline and left ventral cord and is coursing inferiorly in the epidural space, and encasing the descending left L2 nerve. This enhancing tissue is also extending on the left lateral aspect of the cord into the posterior epidural space. Tissue is Inferior to the left L1-L2 foramen and posteriorly abutting the inferior left L1 facet, with enhancement. This enhancing tissue also tracks posterior to the cord in the midline, stopping just superior to the L3 lamina. Diffuse marrow edema in the T1 and T2 vertebral bodies with decreased signal almost all sequences in the endplates except as noted with fluid and enhancement. The spine is convex on the left especially at this disc space level resulting in stenosis of the right L1-L2 foramen with compromise of the right L1 nerve. Marrow edema and enhancement in the right pedicle and lamina of L2. Stable hemangioma in the right L1 vertebral body abutting the right pedicle base, with enhancement. Edema and enhancement extends posteriorly to the surgical decompression site at L2 inferiorly to the soft tissues abutting the L3 lamina and pedicle bilaterally. L2-L3 disc with minimal posterior bulge and hyperintense T2 annular fissure in the midline. Hypertrophic posterior ligaments and facet joints with AP canal diameter 10 mm. Bilateral moderate foraminal narrowing. Trace amount of epidural enhancement at this level. Findings at the more inferior discs, disc spaces, posterior elements, thecal sac and nerve roots are stable since the prior MRI scan. No abnormal enhancement or signal in the T12-L1 disc. IMPRESSION: 1. Epidural abscess in the posterior L1-L2 disc space, extending into the anterior epidural space, tracking inferiorly around the descending left L2 nerve and tracking in the left lateral epidural space, and inferior to the level of the superior bilateral L3 lamina. Right L1-L2 foraminal stenosis and compromise right L1 nerve; significant narrowing left L1-L2 foramen. 2. Minimal enhancement in the ventral epidural space at the L2-L3 disc space level may be due to trace amount of abscess. Also inflammation in the soft tissues abutting the posterior bilateral L3 lamina. Borderline mild central canal stenosis and bilateral moderate foraminal narrowing 3. Osteomyelitis involving the L1 and L2 endplates predominately in the midline slightly to the right of midline with more involvement of the L2 endplate in the L1 endplate. Electronically signed by: Mike Chang MD 03/16/2019 5:32 PM MANAGER MSW
== END ==
LOC: MRI 11:00
PROVIDERS: ATTEND Neurological Surgery
DX: M54.16 Radiculopathy, lumbar region (principal); G06.1 Intraspinal abscess and granuloma; M48.062 Spinal stenosis, lumbar region with neurogenic claudication; M46.26 Osteomyelitis of vertebra, lumbar region

== ENCOUNTER 2019-07-11 12:45 | Emergency (ER) | payer MEDICARE, OTHER ==
--- NOTE | 2019-07-11 13:33 | RAD ---
EXAM DESCRIPTION: Chest,1 View: CR/DR/XR. CLINICAL HISTORY: 73 years Male achiness x weeks COMPARISON: One view May 04. TECHNIQUE: ONE VIEW PORTABLE. AP 1326 hours, upright position. FINDINGS: Lungs are well-inflated with no acute infiltrate. Senescent markings in the lungs. Heart size upper normal limits with normal pulmonary vascularity. No pleural effusion or pneumothorax. IMPRESSION: No radiographic evidence of acute cardiopulmonary disease. Stable since April 2019. Electronically signed by: Mike Chang MD 07/11/2019 1:31 PM CDT
[2019-07-11 13:45] VITALS: O2SAT 98
--- NOTE | 2019-07-11 14:48 | ED.PDOC ---
History of Present Illness - General Chief Complaint: General Time Seen by Provider: 07/11/19 12:55 Source: patient Exam Limitations: no limitations - History of Present Illness Initial Comments: The patient is a 73-year-old male presenting secondary to myalgias and generalized body aches worsening over the last 2 weeks. No nausea or vomiting. No fever. The patient has had a history of discitis having undergone extensive antibiotic therapy for at least 2 rounds. He has been off of antibiotics for the last 3 weeks or so. He is also stopped his statin a week to 10 days ago. Again no fever. No increased pain at the previous surgery in the infection site. No nausea vomiting or diarrhea. No medication changes otherwise. He has been keeping well-hydrated. No syncope or near syncope. No chest pain. He does take a statin medication. Timing/Duration: unsure Severity: moderate Improving Factors: nothing Worsening Factors: nothing Associated Symptoms: denies symptoms Allergies/Adverse Reactions: Allergies NO KNOWN ALLERGY Allergy (Verified 02/20/19 19:46) Home Medications: Ambulatory Orders Losartan Potassium [Cozaar] 100 mg PO DAILY 09/17/13 Acetaminophen W/ Codeine [Tylenol W/ CODEINE #3] 1 ea PO QID PRN 02/20/19 Atorvastatin Calcium 40 mg PO BEDTIME 02/20/19 Diazepam 2 mg PO Q8HR PRN 02/20/19 Gabapentin 300 mg PO BID 02/20/19 Tadalafil 5 mg PO DAILY 02/20/19 Ascorbic Acid [Vitamin C] 500 mg PO BID 04/09/19 Bifidobacterium Infantis [Align] 4 mg PO DAILY 04/09/19 Cyclobenzaprine HCl [Flexeril] 7.5 mg PO TID PRN 04/09/19 Multiple Vitamins W/ Minerals [Multi For Him 50+] 1 tab PO DAILY 04/09/19 Review of Systems - Review of Systems Constitutional: States: malaise EENTM: States: no symptoms reported Respiratory: States: no symptoms reported Cardiology: States: no symptoms reported Gastrointestinal/Abdominal: States: no symptoms reported Genitourinary: States: no symptoms reported Musculoskeletal: States: see HPI Skin: States: no symptoms reported Neurological: States: anxiety Endocrine: States: no symptoms reported All other Systems: No Change from Baseline Past Medical History (General) - Patient Medical History Hx Seizures: No Hx Stroke: No Hx Dementia: No Hx Asthma: No Hx of COPD: No Hx Cardiac Disorders: No Hx Congestive Heart Failure: No Hx Pacemaker: No Hx Hypertension: Yes Hx Thyroid Disease: No Hx Diabetes: No Hx Gastroesophageal Reflux: No Hx Renal Disease: No Hx Cancer: No Hx of HIV: No Hx Hepatitis C: No Hx MRSA: No - Vaccination History Hx Tetanus, Diphtheria Vaccination: Yes Hx Influenza Vaccination: Yes Hx Pneumococcal Vaccination: Yes - Social History Hx Tobacco Use: No Hx Chewing Tobacco Use: No Hx Alcohol Use: Yes - occasionally Hx Substance Use: No Hx Substance Use Treatment: No Hx Depression: No Hx Physical Abuse: No Hx Emotional Abuse: No Hx Suspected Abuse: No Family Medical History - Family History Mother Name: mother Living Status: Unknown Hx Family Congestive Heart Failure: Yes Hx Family Hypertension: Yes - brother,mom Hx Family Cancer: Yes - prostate-dad Physical Exam - Physical Exam General Appearance: Alert, Anxious, No apparent distress Eye Exam: bilateral normal Ears, Nose, Throat: hearing grossly normal, normal pharynx Neck: full range of motion, supple Respiratory: lungs clear, normal breath sounds, no respiratory distress, no accessory muscle use Cardiovascular/Chest: normal peripheral pulses, regular rate, rhythm, no edema Peripheral Pulses: radial,right: 2+, radial,left: 2+ Gastrointestinal/Abdominal: non tender, soft Rectal Exam: deferred Back Exam: no CVA tenderness, no vertebral tenderness Extremity: normal range of motion, non-tender, normal inspection, no pedal edema, normal capillary refill Neurologic: sanitation tank washer II-XII nml as tested, alert, normal mood/affect, oriented x 3 Skin Exam: normal color Comments: Vital Signs - 8 hr 07/11/19 12:57 Temperature 97.4 F L Pulse Rate [ 62 left brachial] Respiratory 20 Rate Blood Pressure 144/88 [left brachial] O2 Sat by Pulse 98 Oximetry Progress - Progress Progress: 07/11/19 14:48 The patient is a 73-year-old male presented emergency room secondary to increasing body aches over the last several weeks. The patient has had a history of significant discitis in the not too distant past. On the work-up today there is not appear to be any significant evidence of that return. White blood cell count is within normal limits for the patient. CRP was undetectable and ESR was only 3. Renal function and liver function appear to be within normal limits. No evidence of significant anemia. Chest x-ray was clear and rapid flu was negative. At this point in time I would tell him to remain off of his statin for another couple of weeks. If the myalgias are not improving then he should have a trial of a week or 2 off of his tadalafil. Myalgias can be associated with it. I would recommend that he follow back up with his primary care doctor in a week or 2. ER warnings are given. A blood culture was done today. There is the possibility of a psychosomatic component given the belinda lele's recent stressors. Exercise should be encouraged. obie angela [phone] 07/11/19 14:50 - Results/Orders Results/Orders: 07/11/19 13:15 EKG STAT sinus bradycardia 59 bpm. Normal axis. Right bundle branch block. Normal QT interval. No definitive ST segment or T wave changes indicative of acute ischemia. Left atrial dilation. Chest x-ray fails to show any acute pathology. 07/11/19 13:47 BLOOD CULTURE Stat Laboratory Results - last 24 hr 07/11/19 07/11/19 07/11/19 13:17 13:17 13:17 WBC 4.6 L RBC 4.61 L Hgb 13.5 L Hct 39.3 L MCV 85.4 MCH 29.3 MCHC 34.3 RDW 14.0 Plt Count 164 MPV 8.2 Absolute Neuts (auto) 3.40 Absolute Lymphs (auto) 0.70 L Absolute Monos (auto) 0.40 Absolute Eos (auto) 0.10 Absolute Basos (auto) 0.00 Neutrophils % 74.6 Lymphocytes % 15.3 L Monocytes % 7.9 Eosinophils % 1.8 Basophils % 0.4 ESR 3 Sodium 138 Potassium 3.7 Chloride 105 Carbon Dioxide 25 Anion Gap 11.7 L BUN 16 Creatinine 0.92 BUN/Creatinine Ratio 17.4 Random Glucose 101 Serum Osmolality 277.0 Lactic Acid Calcium 9.0 Magnesium 2.1 Total Bilirubin 1.8 H AST 21 ALT 21 Alkaline Phosphatase 51 Creatine Kinase 122 CK-MB (CK-2) 4.4 CK-MB (CK-2) % Not Reportable Troponin I < 0.02 C-Reactive Protein < 0.5 Serum Total Protein 6.9 Albumin 4.3 Globulin 2.6 Albumin/Globulin Ratio 1.7 TSH 2.62 Urine Color Urine Appearance Urine pH Ur Specific [place] Urine Protein Urine Glucose (UA) Urine Ketones Urine Blood Urine Nitrite Urine Bilirubin Urine Urobilinogen Ur Leukocyte Esterase Urine RBC Urine WBC Ur Epithelial Cells Urine Bacteria Urine Mucus 07/11/19 07/11/19 13:17 Unknown WBC RBC Hgb Hct MCV MCH MCHC RDW Plt Count MPV Absolute Neuts (auto) Absolute Lymphs (auto) Absolute Monos (auto) Absolute Eos (auto) Absolute Basos (auto) Neutrophils % Lymphocytes % Monocytes % Eosinophils % Basophils % ESR Sodium Potassium Chloride Carbon Dioxide Anion Gap BUN Creatinine BUN/Creatinine Ratio Random Glucose Serum Osmolality Lactic Acid 0.9 Calcium Magnesium Total Bilirubin AST ALT Alkaline Phosphatase Creatine Kinase CK-MB (CK-2) CK-MB (CK-2) % Troponin I C-Reactive Protein Serum Total Protein Albumin Globulin Albumin/Globulin Ratio TSH Urine Color Yellow Urine Appearance Clear Urine pH 6.0 Ur Specific [place] 1.010 Urine Protein Negative Urine Glucose (UA) Negative Urine Ketones Negative Urine Blood Negative Urine Nitrite Negative Urine Bilirubin Negative Urine Urobilinogen 0.2 Ur Leukocyte Esterase Negative Urine RBC 0 Urine WBC 1-3 Ur Epithelial Cells 1-3 Urine Bacteria Rare Urine Mucus Trace Rapid flu was negative. Departure - Departure Clinical Impression: Myalgia Disposition: Discharge to Home or Self Care Condition: Fair Departure Forms: ED Discharge - Pt. Copy, Patient Portal Self Enrollment Diet: regular diet Activity: increase activity as tolerated Referrals: Pedrito Talavera MD [Primary Care Provider] - 1-2 Weeks Home Medications: Ambulatory Orders Losartan Potassium [Cozaar] 100 mg PO DAILY 09/17/13 Acetaminophen W/ Codeine [Tylenol W/ CODEINE #3] 1 ea PO QID PRN 02/20/19 Atorvastatin Calcium 40 mg PO BEDTIME 02/20/19 Diazepam 2 mg PO Q8HR PRN 02/20/19 Gabapentin 300 mg PO BID 02/20/19 Tadalafil 5 mg PO DAILY 02/20/19 Ascorbic Acid [Vitamin C] 500 mg PO BID 04/09/19 Bifidobacterium Infantis [Align] 4 mg PO DAILY 04/09/19 Cyclobenzaprine HCl [Flexeril] 7.5 mg PO TID PRN 04/09/19 Multiple Vitamins W/ Minerals [Multi For Him 50+] 1 tab PO DAILY 04/09/19 Additional Instructions: The patient is a 73-year-old male presented emergency room secondary to increasing body aches over the last several weeks. The patient has had a history of significant discitis in the not too distant past. On the work-up today there is not appear to be any significant evidence of that return. White blood cell count is within normal limits for the patient. CRP was undetectable and ESR was only 3. Renal function and liver function appear to be within normal limits. No evidence of significant anemia. Chest x-ray was clear and rapid flu was negative. At this point in time I would tell him to remain off of his statin for another couple of weeks. If the myalgias are not improving then he should have a trial of a week or 2 off of his tadalafil. Myalgias can be associated with it. I would recommend that he follow back up with his primary care doctor in a week or 2. ER warnings are given. A blood culture was done today. Exercise is encouraged.
[2019-07-11 15:07] VITALS: BP 140/82; TEMP 98
== END 2019-07-11 15:25 | disposition home or self-care (01) ==
LOC: ER 12:45
DX: M79.10 Myalgia, unspecified site (principal); R00.1 Bradycardia, unspecified; I45.10 Unspecified right bundle-branch block

== ENCOUNTER → 2019-08-23 | Outpatient (CLI) | payer MEDICARE, OTHER ==
--- NOTE | 2019-08-23 16:35 | MRI ---
EXAM DESCRIPTION: Lumbar Spine w/wo Contrast CLINICAL HISTORY: DISKITIS COMPARISON: June 01, 2019 TECHNIQUE: Multiplanar MRI of the lumbar spine was performed with and without contrast. FINDINGS: Severe loss of disc space height is again seen at L1-L2 with mild anterior wedging of the superior plate of L2 stable from previous. Interval resolution of the bone marrow edema in the vertebral bodies seen on previous exam is seen with now decreased signal on T1 and T2-weighted sequences around the disc spaces. Mild residual enhancement of the right aspect of the disc space is seen. L1 laminectomy again seen. No abnormal epidural fluid collection. No spinal canal stenosis. Severe right and moderate foraminal encroachment at L1-L2. Lyme millimeters focus of fluid signal involving the anterior left disc space image 4 of series 401 and image 23 of series 501 showing diffuse enhancement on postcontrast images. 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 Mild disc disease and facet arthropathy below the L2 level is stable from previous. Moderate to severe foraminal encroachment from L3 through S1 secondary to disc disease and facet arthropathy is again seen. Mild enhancement of the soft tissue around the L5-S1 facet joints is increased from previous. No abnormal fluid collection in the soft tissues. Left paracentral disc protrusion at L5-S1 contributes to mild encroachment on the descending S1 nerve root. Surrounding soft tissues are unremarkable. No paraspinal fluid collection or abscess. 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 Focus of increased T2 signal and enhancement anterior to the left of the L1-L2 disc space and towards the right at this disc space likely represents enhancing granulation tissue rather than focal abscess. Enhancing soft tissue around the L5-S1 facet joints suggest acute inflammation. No abnormal fluid collection is seen. Spondylitic changes of the lumbar spine are otherwise stable from previous. Electronically signed by: Richard Woods MD 08/23/2019 4:33 PM CDT
== END ==
LOC: MRI 11:11
PROVIDERS: ATTEND Internal Medicine Infectious Disease
DX: M46.26 Osteomyelitis of vertebra, lumbar region (principal); M46.46 Discitis, unspecified, lumbar region; M79.9 Soft tissue disorder, unspecified; M47.896 Other spondylosis, lumbar region; R60.0 Localized edema

== ENCOUNTER 2019-10-18 19:18 | Emergency (ER) | payer MEDICARE, OTHER ==
[2019-10-18 19:44] VITALS: TEMP 97.6
--- NOTE | 2019-10-18 20:08 | ED.PDOC ---
History of Present Illness - General Chief Complaint: Blood Pressure Problem Stated Complaint: elevated BP, pain to Rt arm Time Seen by Provider: 10/18/19 20:05 Additional Information: Patient is a 74-year-old male who presents to the ED with chief complaint of hypertension and right arm pain. Patient indicates that he was working on his computer today and felt a mild ache in his right shoulder and right forearm. He took his blood pressure and noted it to be 175/125 and realized that was high and came to the emergency department for evaluation. Patient has known hypertension and takes losartan and amlodipine and is compliant with these medications. Patient denies chest pain, cough, shortness of breath, weakness in the arm, nausea, vomiting. Patient indicates that yesterday he worked out at the gym and then mowed the lawn and that may be a source of strain for his arm. Patient's pain is completely relieved with rest and is only a 3/10 with movement. - History of Present Illness Allergies/Adverse Reactions: Allergies NO KNOWN ALLERGY Allergy (Verified 02/20/19 19:46) Home Medications: Ambulatory Orders Losartan Potassium [Cozaar] 100 mg PO DAILY 09/17/13 Acetaminophen W/ Codeine [Tylenol W/ CODEINE #3] 1 ea PO QID PRN 02/20/19 Atorvastatin Calcium 40 mg PO BEDTIME 02/20/19 Diazepam 2 mg PO Q8HR PRN 02/20/19 Gabapentin 300 mg PO BID 02/20/19 Tadalafil 5 mg PO DAILY 02/20/19 Ascorbic Acid [Vitamin C] 500 mg PO BID 04/09/19 Bifidobacterium Infantis [Align] 4 mg PO DAILY 04/09/19 Cyclobenzaprine HCl [Flexeril] 7.5 mg PO TID PRN 04/09/19 Multiple Vitamins W/ Minerals [Multi For Him 50+] 1 tab PO DAILY 04/09/19 Cyclobenzaprine HCl [Flexeril] 10 mg PO Q8H PRN #20 tab 10/18/19 Ibuprofen 800 mg PO Q8H PRN #20 tab 10/18/19 Review of Systems - Review of Systems Constitutional: States: no symptoms reported. Denies: chills, fever EENTM: States: no symptoms reported Respiratory: States: no symptoms reported. Denies: cough, short of breath Cardiology: States: no symptoms reported. Denies: chest pain, palpitations Gastrointestinal/Abdominal: States: no symptoms reported. Denies: abdominal pain, nausea, vomiting Musculoskeletal: States: see HPI, muscle pain. Denies: joint pain, neck pain Skin: States: no symptoms reported. Denies: rash Neurological: States: no symptoms reported. Denies: numbness, paresthesia, tingling, tremors, weakness All other Systems: Reviewed and Negative Past Medical History (General) - Patient Medical History Hx Seizures: No Hx Stroke: No Hx Dementia: No Hx Asthma: No Hx of COPD: No Hx Cardiac Disorders: No Hx Congestive Heart Failure: No Hx Pacemaker: No Hx Hypertension: Yes Hx Thyroid Disease: No Hx Diabetes: No Hx Gastroesophageal Reflux: No Hx Renal Disease: No Hx Cancer: No Hx of HIV: No Hx Hepatitis C: No Hx MRSA: No - Vaccination History Hx Tetanus, Diphtheria Vaccination: No Hx Influenza Vaccination: Yes Hx Pneumococcal Vaccination: No - Social History Hx Tobacco Use: No Hx Chewing Tobacco Use: No Hx Alcohol Use: Yes Hx Substance Use: No Hx Substance Use Treatment: No Hx Depression: No Hx Physical Abuse: No Hx Emotional Abuse: No Hx Suspected Abuse: No Family Medical History - Family History Mother Name: mother Living Status: Unknown Hx Family Congestive Heart Failure: Yes Hx Family Hypertension: Yes - brother,mom Hx Family Cancer: Yes - prostate-dad Physical Exam - Physical Exam General Appearance: Alert, Comfortable, No apparent distress, Well Developed, Well Nourished Neck: full range of motion, supple, normal inspection Respiratory: chest non-tender, lungs clear, normal breath sounds, no respiratory distress, no accessory muscle use Cardiovascular/Chest: normal peripheral pulses, regular rate, rhythm, no edema, no gallop, no JVD, no murmur Peripheral Pulses: radial,right: 2+, radial,left: 2+ Gastrointestinal/Abdominal: normal bowel sounds, non tender, soft Back Exam: normal inspection, no CVA tenderness Extremity: normal range of motion, non-tender, no pedal edema, other - Negative right upper extremity edema. Neurologic: exercise scientist II-XII nml as tested, no motor/sensory deficits, alert, normal mood/affect, other - Equal and normal private watchman/strength bilateral upper extremities. Skin Exam: normal color, warm/dry Progress - Progress Progress: 10/18/19 21:42 EKG: Normal sinus rhythm, rate 71, equivocal axis, wide QRS, right bundle branch block, ST and T wave changes consistent with right bundle branch block. Negative STEMI. Read by Elgin Mansfield MD Patient's labs are unremarkable/baseline for patient including his bilirubin, his EKG and imaging is negative and clinically I suspect musculoskeletal strain. Will discharge with analgesics and patient to rest and follow-up with his PCP in 2 to 3 days. Vital signs stable, patient is NAD and looks clinically well and I believe is safe for discharge with outpatient follow-up. Follow-up instructions, discharge instructions and return to ED precautions discussed with patient. Patient voices understanding and willingness to comply with instructions. All laboratory and radiographic results have been discussed with the patient, and all questions answered. Patient is happy with plan. Departure - Departure Clinical Impression: Arm pain Qualifiers: Laterality: right Qualified Code(s): M79.601 - Pain in right arm Time of Disposition: 21:44 Disposition: Discharge to Home or Self Care Condition: Fair Departure Forms: ED Discharge - Pt. Copy, Patient Portal Self Enrollment Instructions: DI for High Blood Pressure Referrals: Pedrito Talavera MD [Primary Care Provider] - 1-5 Days Prescriptions: Cyclobenzaprine HCl [Flexeril] 10 mg PO Q8H PRN #20 tab PRN Reason: Pain Ibuprofen 800 mg PO Q8H PRN #20 tab PRN Reason: Pain Home Medications: Ambulatory Orders Losartan Potassium [Cozaar] 100 mg PO DAILY 09/17/13 Acetaminophen W/ Codeine [Tylenol W/ CODEINE #3] 1 ea PO QID PRN 02/20/19 Atorvastatin Calcium 40 mg PO BEDTIME 02/20/19 Diazepam 2 mg PO Q8HR PRN 02/20/19 Gabapentin 300 mg PO BID 02/20/19 Tadalafil 5 mg PO DAILY 02/20/19 Ascorbic Acid [Vitamin C] 500 mg PO BID 04/09/19 Bifidobacterium Infantis [Align] 4 mg PO DAILY 04/09/19 Cyclobenzaprine HCl [Flexeril] 7.5 mg PO TID PRN 04/09/19 Multiple Vitamins W/ Minerals [Multi For Him 50+] 1 tab PO DAILY 04/09/19 Cyclobenzaprine HCl [Flexeril] 10 mg PO Q8H PRN #20 tab 10/18/19 Ibuprofen 800 mg PO Q8H PRN #20 tab 10/18/19
--- NOTE | 2019-10-18 20:18 | RAD ---
EXAM DESCRIPTION: Chest,1 View CLINICAL HISTORY: 74 years Male, short of breath COMPARISON: 07/11/2019 TECHNIQUE: Single AP chest radiograph. FINDINGS: Clear lungs. No pneumothorax or pleural effusion. Normal cardiomediastinal contour. Normal osseous structures. IMPRESSION: 1. No acute cardiopulmonary process. Electronically signed by: Jasbir Schmidt MD 10/18/2019 8:10 PM CDT
[2019-10-18 21:06] VITALS: BP 136/86; O2SAT 98
== END 2019-10-18 21:55 | disposition home or self-care (01) ==
LOC: ER 19:18
DX: M79.601 Pain in right arm (principal); I45.10 Unspecified right bundle-branch block; I10 Essential (primary) hypertension; Z79.899 Other long term (current) drug therapy

== ENCOUNTER → 2020-01-10 | Outpatient (CLI) | payer MEDICARE, OTHER ==
--- NOTE | 2020-01-11 14:34 | MRI ---
EXAM DESCRIPTION: Lumbar Spine w/o Contrast : Magnetic Resonance Imaging. 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 TECHNIQUE: Multiplanar, multiple standard sequences, non contrast MRI, lumbar spine. FINDINGS: L5-S1: The disc is well visualized on axial T2 series 501, image 3. Disc space loss mostly posterior more than anterior. Chronic protrusion of the disc in the midline slightly extending below the disc space, into the left of midline, effacing the left subarticular recess and displacing left S1 nerve root posterior. Hypertrophic changes in the posterior flavum ligaments in the facet joints (canal elements). Left paracentral AP canal diameter 9 mm. Posterior moderate endplate reactive changes. Bilateral foraminal stenosis. Stable since the prior study L4-L5: Disc desiccation and posterior disc space loss. Posterior broad-based bulge abutting the thecal sac, bilateral subarticular recesses, and the bilateral L5 nerves. Minimal hypertrophy in the canal elements. AP canal diameter 9 mm. Bilateral severe foraminal narrowing versus borderline stenosis. This is progressed since the prior study. L3-L4: Disc desiccation and posterior disc space loss. Posterior broad-based disc bulge. Minimal hypertrophic changes in the canal elements. AP canal diameter 8 mm. Minimal progression since the prior study. Bilateral severe foraminal narrowing. L2-L3: Disc desiccation with disc space maintained. Posterior minimal bulging. Hypertrophy of the canal elements. AP canal diameter 8 mm. Bilateral severe foraminal narrowing more on the right. Stable since the prior study. L1-L2: Disc is essentially absent with endplates approximating each other. 2 mm retrolisthesis and posterior laminectomy. Increased fatty marrow in both vertebral bodies with no edema. Severe bilateral foraminal narrowing versus borderline mild stenosis. No interval change. T12-L1: Disc normal signal with disc space maintained and no bulging. Hypertrophic changes in the canal elements. Mild bilateral foraminal narrowing, more on the left. Stable since the prior study. L2-L4 levoscoliosis. Paravertebral soft tissues postsurgical changes again noted at L1-L2. Paravertebral muscle atrophy.. Abdominal aorta dimensions transverse are 3.0 x 2.8 cm at the level of the celiac trunk. Distal cord normal signal and caliber. Otherwise normal marrow signal in the remaining vertebral bodies and the posterior elements. Vertebral bodies are not compressed at any level. IMPRESSION: 1. Discectomy and posterior laminectomy at L1-L2 with retrolisthesis. No interval change. Chronic posterior spondylosis and disc protrusion at L5-S1 stable since the prior study. Multiple levels of disc desiccation and hypertrophic changes in the flavum ligaments and arthrosis in the facet joints. 2. Posterior spondylosis L4-L5 with disc bulge, mild canal stenosis and bilateral severe foraminal narrowing versus borderline stenosis which has progressed since the prior study. 3. Please refer to FINDINGS for discussion the results at other disc space levels. Electronically signed by: Mike Chang MD 01/11/2020 2:32 PM [facility]
== END ==
LOC: MRI 11:17
PROVIDERS: ATTEND Family Medicine
DX: M51.16 Intervertebral disc disorders with radiculopathy, lumbar region (principal); M47.26 Other spondylosis with radiculopathy, lumbar region; M43.16 Spondylolisthesis, lumbar region; M46.96 Unspecified inflammatory spondylopathy, lumbar region; Z98.890 Other specified postprocedural states; M47.897 Other spondylosis, lumbosacral region; M51.27 Other intervertebral disc displacement, lumbosacral region

== ENCOUNTER → 2020-02-28 | Outpatient (CLI) | payer MEDICARE, OTHER ==
--- NOTE | 2020-02-29 10:47 | MRI ---
EXAM DESCRIPTION: Cervical Spine: MRI. CLINICAL HISTORY: 74 years Male RADICULOPATHY COMPARISON: MRI scan cervical spine without contrast November 2014. TECHNIQUE: Multiplanar, high-field MRI, multiple sequences, non-contrast Cervical spine. FINDINGS: C3-C4: Disc desiccation and minimal disc space loss. Tiny posterior midline bulging abutting the cord. Bilateral uncinate spurs. Hypertrophic arthrosis right facet joint. Minimal thickening of the posterior fibroid ligaments. Mild right neuroforaminal stenosis. This has progressed since the prior study. Left neuroforamen patent. Mild canal narrowing. C4-C5: Disc desiccation minimal disc space loss. Posterior midline disc bulge abutting the cord. Posterior plate and ligament thickening. Bilateral uncinate spurs. Mild hypertrophic arthrosis right facet joint. Mild to moderate narrowing of the neuroforamina bilaterally. Moderate canal narrowing. C5-C6: Disc desiccation and minimal disc space loss. Posterior disc bulge and endplate spurs abutting the cord. Posterior flavum ligament thickening abutting the cord. Bilateral uncinate spurs. Right side moderate endplate reactive changes. Borderline canal stenosis and bilateral borderline neural foraminal stenosis. This has progressed since the prior study. C6-C7: Disc desiccation and mild endplate reactive changes and moderate disc space loss. Posterior disc osteophyte complex abutting the cord. Posterior spinal ligament thickening abutting the cord. Bilateral uncinate spurs. Bilateral neural foraminal stenosis and mild central canal stenosis. This has progressed since the prior study. C7-T1: Disc desiccation with no bulging. Disc space maintained. Trace anterolisthesis. Bilateral mild hypertrophic changes in the facet joints and mild neural foraminal narrowing. Canal is patent. Normal signal in the C2-C3 disc and T1-T2 disc with no bulging. Disc spaces preserved. Canal and neural foramina are patent. Facet joints unremarkable. Spinal alignment unremarkable. No cord compression or cord edema. Atlantoaxial joint unremarkable.. Base of the cerebellar tonsils is above the foramen magnum. Paravertebral soft tissues negative.. Vertebral bodies are not compressed at any level. Otherwise normal marrow signal in the remaining vertebral bodies and the posterior elements. IMPRESSION: 1. C5-C6 moderate right sided spondylosis with disc spur complex encroaching on the neural foramen. Multifactorial borderline central canal stenosis and bilateral borderline neural foraminal stenosis. This has progressed since the prior study. 2. Multifactorial mild central canal stenosis at C6-7 and bilateral neural foraminal stenosis. This has progressed since the prior study. 3. Mild right neuroforaminal stenosis C3-C4. This has progressed since the prior study. 4. Please refer to FINDINGS for discussion of results at other disc space levels. Electronically signed by: Mike Chang MD 02/29/2020 10:46 AM [facility]
== END ==
LOC: MRI 13:02
PROVIDERS: ATTEND Family Medicine Sports Medicine
DX: M47.22 Other spondylosis with radiculopathy, cervical region (principal); M48.02 Spinal stenosis, cervical region; M25.78 Osteophyte, vertebrae

== ENCOUNTER 2020-03-12 05:51 | Day surgery (SDC) | payer MEDICARE, OTHER ==
[2020-03-12] MEDS ORDERED: LIDOCAINE 1% 10 ML VIAL INJ ONE (07:18)
[2020-03-12] MEDS ORDERED: BETAMETHASONE ACETATE/BETAMETH 6 MG/ML VIAL IM ONE (07:18)
[2020-03-12] MEDS ORDERED: BUPIVACAINE 0.5% 30 ML VIAL INJ ONE (07:19)
[2020-03-12] MEDS: LIDOCAINE 1% 10 ML VIAL INJ ONE ×2 (07:56→08:07)
[2020-03-12] MEDS: BUPIVACAINE 0.5% 30 ML VIAL INJ ONE ×2 (07:56→08:07)
[2020-03-12] MEDS: BETAMETHASONE ACETATE/BETAMETH 6 MG/ML VIAL IM ONE ×2 (07:57→08:07)
== END 2020-03-12 08:35 | disposition home or self-care (01) ==
LOC: AMB 05:51
PROVIDERS: ATTEND Family Medicine Sports Medicine
DX: M54.5 Low back pain (principal); M47.896 Other spondylosis, lumbar region; E78.2 Mixed hyperlipidemia; I10 Essential (primary) hypertension; N40.0 Benign prostatic hyperplasia without lower urinary tract symptoms; M54.12 Radiculopathy, cervical region; F41.1 Generalized anxiety disorder; M79.672 Pain in left foot; Z79.899 Other long term (current) drug therapy

== ENCOUNTER 2020-03-26 05:49 | Day surgery (SDC) | payer MEDICARE, OTHER ==
[2020-03-26] MEDS ORDERED: BETAMETHASONE ACETATE/BETAMETH 6 MG/ML VIAL IM ONE ×2 (07:25→08:43)
[2020-03-26] MEDS ORDERED: BUPIVACAINE 0.5% 30 ML VIAL INJ ONE ×2 (07:25→08:42)
[2020-03-26] MEDS ORDERED: LIDOCAINE 1% 10 ML VIAL INJ ONE ×2 (07:25→08:42)
== END 2020-03-26 08:54 | disposition home or self-care (01) ==
LOC: AMB 05:49
PROVIDERS: ATTEND Family Medicine Sports Medicine
DX: M54.5 Low back pain (principal); M47.896 Other spondylosis, lumbar region; M54.12 Radiculopathy, cervical region; E78.5 Hyperlipidemia, unspecified; I10 Essential (primary) hypertension; N40.0 Benign prostatic hyperplasia without lower urinary tract symptoms; Z79.899 Other long term (current) drug therapy